=== PATIENT | male | born 1960 | race Caucasian/White ===

== ENCOUNTER 2016-10-30 12:50 | Emergency (ER) | payer OTHER ==
[~2016-10-30] VITALS: Ht 170.2 cm; Wt 95.3 kg
[2016-10-30] MEDS ORDERED: ADACEL/BOOSTRIX VACCINE (DIPHTH/PERTUSS/ACELL/TETANUS)0.5ML SYR (90715) IM ONE (14:00)
[2016-10-30] MEDS ORDERED: PERCOCET 5MG/325MG TAB PO ONE (14:00)
[2016-10-30] MEDS ORDERED: LIDOCAINE 2% MDV 20 ML VIAL SC ONE (14:15)
--- NOTE | 2016-10-30 14:21 | REP ---
LEFT FINGERS, FOUR VIEWS: HISTORY: Injury. There is a fracture of the tuft of the distal phalange of the fourth digit. There is no dislocation. The joint spaces are normal in appearance. A defect is present in the overlying soft tissue. IMPRESSION: Fracture of the tuft of the distal phalange of the fourth digit. Signed by Rene Valdes MD 10/30/2016 02:22 P
[2016-10-30] MEDS ORDERED: KEFL500C7 PO (15:27)
[2016-10-30] MEDS ORDERED: PERC5TAB6 PO (15:27)
[2016-10-30] MEDS ORDERED: cefTRIAXone SOD 1 GM VIAL (J0696) IM ONE (15:30)
[2016-10-30 16:18] VITALS: BP 174/98
== END 2016-10-30 16:20 | disposition home or self-care (01) ==
LOC: M ED 15:29
DX: S62.635B Displaced fracture of distal phalanx of left ring finger, initial encounter for open fracture (principal); W29.8XXA Contact with other powered hand tools and household machinery, initial encounter; Y92.89 Other specified places as the place of occurrence of the external cause; Y93.89 Activity, other specified; Y99.8 Other external cause status; Z88.5 Allergy status to narcotic agent
CPT/HCPCS: 12001; 73140; 90715; 96372; 99282; J0696

== ENCOUNTER → 2018-09-23 | Outpatient (CLI) | payer OTHER ==
[~2018-09-23] MED LIST: KEFL500C17 PO; PERC5TAB12 PO
== END ==
LOC: M SMT 14:14
PROVIDERS: ATTEND Urology
DX: Z12.5 Encounter for screening for malignant neoplasm of prostate (principal); R39.9 Unspecified symptoms and signs involving the genitourinary system

== ENCOUNTER → 2018-09-28 | Outpatient (CLI) | payer OTHER ==
--- NOTE | 2018-09-28 09:40 | REP ---
RENAL AND BLADDER ULTRASOUND: Real-time sonographic evaluation of the kidneys is performed and demonstrates both kidneys to be normal in size and echotexture, right kidney measures 12.0 x 5.7 x 5.0 cm and left kidney 10.9 x 6.3 x 4.6 cm. There is no hydronephrosis bilaterally. There is a septated cyst in the upper pole of the right kidney measuring 6.9 x 4.5 x 5.9 cm. Multiple internal septations are seen within the cyst and the is possibly some internal nodular affixing along the inner ugarte of the cyst and along some of the septae. Recommend dedicated C1 of the kidneys with and without contrast for more thorough evaluation. No mass is seen in the left kidney. Prostate is somewhat enlarged 4.7 x 5.5 x 2.8 cm for a total volume of 50.5 mL. Urinary bladder measures 10.2 x 6.9 x 4.7 cm for a total volume of 174 mL. No mass or calculus is seen. There are bilateral ureteral jets in the urinary bladder with Doppler color evaluation. IMPRESSION: Complex cyst right kidney with a maximum diameter 6.9 cm with multiple internal septations. There may be some degree of soft tissue thickening along the inner ugarte of the cyst and along some of the septae, recommend dedicated CT of the kidneys with and without IV contrast to better evaluate and grade this complex cyst. Electronically Signed by Seth Strickland MD 09/28/2018 11:13 A
== END ==
LOC: M SMT 08:00
PROVIDERS: ATTEND Urology
DX: N28.1 Cyst of kidney, acquired (principal)

== ENCOUNTER → 2018-09-29 | Outpatient (CLI) | payer OTHER ==
[2018-09-29 17:34] LABS: BLOOD UREA NITROGEN 23 MG/DL (7-18); CALCIUM LEVEL 8.7 MG/DL (8.5-10.1); CARBON DIOXIDE LEVEL 28 MEQ/L (21-32); CHLORIDE LEVEL 108 MEQ/L (98-107); CREATININE FOR GFR 0.99 MG/DL (0.70-1.30); GLOMERULAR FILTRATION RATE > 60.0 (>56); GLUCOSE, FASTING 89 MG/DL (70-100); POTASSIUM SERUM 4.5 MEQ/L (3.5-5.1); SODIUM LEVEL 141 MEQ/L (136-145)
== END ==
LOC: M SMT 13:14
PROVIDERS: ATTEND Specialist
DX: N28.1 Cyst of kidney, acquired (principal)

== ENCOUNTER → 2018-10-05 | Outpatient (CLI) | payer OTHER ==
[~2018-10-05] MED LIST changes: +ISOVUE-370 76% 125ML VIAL (Q9967 PER ML) As Ordered ONE
--- NOTE | 2018-10-05 10:38 | REP ---
CT ABDOMEN AND PELVIS WITHOUT AND WITH IV CONTRAST: Multiphase exam, CT urogram. HISTORY: Right renal cyst. No comparison CT study. Comparison renal sonography September 28, 2018. CT CONTRAST DOSE: 100 mL of intravenous Isovue 370. 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 The lung bases are clear on axial CT images. There is no evidence of pleural effusion or upper abdominal ascites. The liver and the spleen are normal in size and homogeneous in texture on pre- and postcontrast images. No adrenal lesion is seen. The pancreas and gallbladder show no abnormality. There is no retroperitoneal mass or adenopathy. Mild left colonic diverticulosis is seen. No abdominal wall defect is seen. Small and large bowel loops are otherwise unremarkable. 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 No bony destructive lesion is seen. CT images pre- and postcontrast confirm the presence of a complex cystic lesion in the right kidney upper pole. This measures 6.3 cm craniocaudal x 5.9 cm right to left x 6.3 cm anterior to posterior. Noncontrast study shows a small focal septal calcification within the lesion. There is very subtle septal thickening near this calcification which corresponds to the ultrasound findings. There is no evidence of contrast enhancement within the lesion however on early or late postcontrast enhanced images. There is a tiny 6 mm cortical cyst in the lower pole of the left kidney. No other focal renal lesion is seen. No hydronephrosis is seen. No filling defect is seen in the collecting systems. No bladder mass is evident on pre- or postcontrast images. Prostate is mildly prominent. Seminal vesicles are unremarkable. IMPRESSION: 6.3 cm complex cystic lesion upper pole right kidney with slight septal thickening and focal septal calcification but no contrast enhancement. Bosniak class II minimally complex cyst. Left colonic diverticulosis and mildly prominent prostate are also noted. Electronically Signed by Josue Romo MD 10/05/2018 11:11 A
== END ==
LOC: M RAD 06:49
PROVIDERS: ATTEND Specialist
DX: N28.1 Cyst of kidney, acquired (principal); K57.30 Diverticulosis of large intestine without perforation or abscess without bleeding
CPT/HCPCS: 74178; Q9967

== ENCOUNTER → 2018-10-14 | Outpatient (REF) | payer OTHER ==
[~2018-10-14] MED LIST changes: -ISOVUE-370 76% 125ML VIAL (Q9967 PER ML) As Ordered ONE
== END ==
LOC: M SMT 17:08
PROVIDERS: ATTEND Nurse Practitioner Family
DX: R97.20 Elevated prostate specific antigen [PSA] (principal)

== ENCOUNTER → 2018-11-07 | Outpatient (CLI) | payer OTHER ==
[2018-11-09 00:07] LABS: PSA % FREE 15.2 % (.); PSA FREE 0.64 ng/mL; PSA TOTAL 4.2 ng/mL (0.0-4.0)
== END ==
LOC: M SMT 07:55
PROVIDERS: ATTEND Nurse Practitioner Family
DX: R97.20 Elevated prostate specific antigen [PSA] (principal)

== ENCOUNTER → 2018-12-13 | Outpatient (CLI) | payer OTHER ==
--- NOTE | 2018-12-13 12:38 | REP ---
TRANSRECTAL PROSTATE ULTRASOUND WITH ULTRASOUND GUIDANCE FOR PROSTATE BIOPSY: Real-time sonographic evaluation of the prostate performed utilizing transrectal probe. The size of the gland is 5.1 x 3.9 x 5.4 cm for a total volume of 55.3 mL. Echotexture is heterogeneous diffusely with scattered cysts and calcifications. Hypoechoic nodule at the right base measures 7 mm. Seminal vesicles appear unremarkable. Ultrasound guidance was provided for dr. Yin who performed ultrasound-guided biopsy of the prostate. Electronically Signed by Seth Strickland MD 12/13/2018 07:36 P
== END ==
LOC: M SMT PRO 09:03
PROVIDERS: ATTEND Urology
DX: R97.20 Elevated prostate specific antigen [PSA] (principal)
CPT/HCPCS: 76872; 76942; G0416

== ENCOUNTER → 2018-12-14 | Outpatient (CLI) | payer OTHER ==
--- NOTE | 2018-12-14 09:52 | REP ---
Chest two views HISTORY: Dyspnea Comparison: 09/03/2006 The lungs are clear. The heart is normal in size. The pulmonary vasculature is normal in appearance. Degenerative change is present in the thoracic spine. IMPRESSION: No acute disease. Electronically Signed by Rene Valdes MD 12/14/2018 09:44 A
== END ==
LOC: M SMT 09:30
PROVIDERS: ATTEND Internal Medicine Pulmonary Disease
DX: R06.00 Dyspnea, unspecified (principal)

== ENCOUNTER → 2019-07-18 | Outpatient (CLI) | payer OTHER ==
[2019-07-22 00:06] LABS: PSA FREE 0.67 ng/mL; PSA TOTAL 6.1 ng/mL (0.0-4.0)
== END ==
LOC: M PLALAB 08:55
PROVIDERS: ATTEND Urology
DX: R97.20 Elevated prostate specific antigen [PSA] (principal)

== ENCOUNTER → 2019-07-25 | Outpatient (REF) | payer OTHER | LOC: M SMT 13:16 | PROVIDERS: ATTEND Urology | DX: R97.20 Elevated prostate specific antigen [PSA] (principal) ==

== ENCOUNTER → 2019-08-30 | Outpatient (CLI) | payer OTHER | LOC: M PLALAB 14:51 | PROVIDERS: ATTEND Urology | DX: R97.20 Elevated prostate specific antigen [PSA] (principal) ==

== ENCOUNTER → 2020-02-27 | Outpatient (CLI) | payer OTHER ==
[2020-02-29 04:10] LABS: PSA % FREE 10.9 % (.); PSA FREE 0.62 ng/mL; PSA TOTAL 5.7 ng/mL (0.0-4.0)
== END ==
LOC: M PLALAB 07:57
PROVIDERS: ATTEND Urology
DX: R97.20 Elevated prostate specific antigen [PSA] (principal)

== ENCOUNTER → 2021-03-28 | Outpatient (CLI) | payer OTHER ==
[2021-03-31 19:07] LABS: PSA TOTAL 3.4 ng/mL (0.0-4.0)
== END ==
LOC: M PLALAB 13:42
PROVIDERS: ATTEND Urology
DX: R97.20 Elevated prostate specific antigen [PSA] (principal)

== ENCOUNTER → 2023-03-22 | Outpatient (CLI) | payer OTHER ==
[2023-03-23 23:07] LABS: PSA TOTAL 3.3 ng/mL (0.0-4.0)
== END ==
LOC: M PLALAB 08:39
PROVIDERS: ATTEND Urology
DX: R97.20 Elevated prostate specific antigen [PSA] (principal)

== ENCOUNTER → 2025-06-19 | Outpatient (CLI) | payer MEDICARE ==
[~2025-06-19] MED LIST changes: +PROHANCE 279.3MG/ML 15ML VIAL ONE; +PROHANCE 279.3MG/ML 5ML VIAL ONE
== END ==
LOC: M PLAIMG 06:40
PROVIDERS: ATTEND Urology
DX: R97.20 Elevated prostate specific antigen [PSA] (principal); R93.49 Abnormal radiologic findings on diagnostic imaging of other urinary organs
CPT/HCPCS: 72197; A9579